=== PATIENT | male | born 1935 | race Caucasian/White ===

== ENCOUNTER → 2016-11-09 | Outpatient (CLI) | payer OTHER ==
[~2016-11-09] MED LIST: ACET-1256 PO; ARC10 PO; ASPI-232 PO; FINA5TAB PO; FLV1 PO; FRRS300 PO; LEVO100T7 PO; LMGOPS OPB; QUET1TAB30 PO; TRAZ50TA35 PO; VITAMIN D2 PO
--- NOTE | 2016-11-09 14:29 | DIAGNOSTIC IMAGING REPORT ---
HEAD CT NONCONTRAST CT DOSE: 614.27 mGy.cm HISTORY: Hydrocephalus. Change in mental status. TECHNIQUE: Multiaxial CT images of the head were performed without the use of intravenous contrast. Automated exposure control was utilized for this study. Comparison: Head CT 01/13/2016. Findings: Small retention cyst within the bilateral maxillary sinuses. No fluid levels within the paranasal sinuses. The mastoid air cells are clear. The calvarium and skull base are intact. There is a right frontoparietal ventriculostomy catheter with the tip terminating near the left foramen of marrow. This remains unchanged in position. The catheter appears intact. The ventricles remain stable in size. There is no mass, midline shift, or acute infarct. Bifrontal extra-axial low to intermediate density fluid collections are not significantly changed. Dominant right frontal fluid collection measures up to 9 mm in thickness. Impression: No significant change compared to the prior study. The ventriculostomy catheter and small bifrontal extra-axial fluid collections persist. No acute intracranial abnormality. Electronically signed by: Keenan Abrams M.D. 11/09/2016 2:27 PM Dictated Date/Time: 11/09/2016 2:20 PM
== END | disposition home or self-care (01) ==
LOC: C.CTS 13:41
PROVIDERS: ATTEND Neurological Surgery
DX: G91.2 (Idiopathic) normal pressure hydrocephalus (principal); Z98.2 Presence of cerebrospinal fluid drainage device

== ENCOUNTER → 2017-03-11 | Outpatient (CLI) | payer OTHER ==
--- NOTE | 2017-03-11 14:02 | DIAGNOSTIC IMAGING REPORT ---
HEAD CT NONCONTRAST CT DOSE: 537.48 mGy.cm HISTORY: Confusion. TECHNIQUE: Multiaxial CT images of the head were performed without the use of intravenous contrast. Automated exposure control was utilized for this study. Comparison: Head CT 11/09/2016. Findings: Small retention cysts within the maxillary sinuses. Mild mucosal thickening within the left anterior ethmoid air cells. The mastoid air cells are clear. The calvarium and skull base are intact. The right frontal approach ventriculostomy catheter which terminates near the left foramen of [place]. This remains unchanged in position. The catheter appears intact. The ventricles are stable in size. The left extra-axial fluid collection has resolved. A tiny right frontal intermediate density extra-axial fluid collection has significantly decreased in size. This measures up to 4 mm in thickness, previously measuring 9 mm. There is no mass, midline shift, or acute infarct. Impression: 1. Significant decrease in size in the tiny right frontal extra-axial fluid collection. The left extra-axial fluid collection has resolved. 2. No change in position of the ventriculostomy catheter. The ventricles remain stable in size. 3. No acute intracranial abnormality. Electronically signed by: Keenan Abrams M.D. 03/11/2017 2:01 PM Dictated Date/Time: 03/11/2017 1:56 PM
== END | disposition home or self-care (01) ==
LOC: C.CTS 13:42
PROVIDERS: ATTEND Physician Assistant Medical
DX: G91.2 (Idiopathic) normal pressure hydrocephalus (principal)